=== PATIENT | female | born 1995 | race Caucasian/White ===

== ENCOUNTER 2020-08-18 16:44 | Emergency (ER) | payer SELFPAY ==
[2020-08-18] MEDS ORDERED: Azithromycin 250 MG TAB ONE (17:32)
[2020-08-18] MEDS ORDERED: cefTRIAXone\\ROCEPHIN 250 MG VIAL ONE (17:32)
[2020-08-18] MEDS ORDERED: Lidocaine 1% PF 5 ML VIAL ONE (17:32)
[2020-08-20 23:00] LABS: Chlamydia by PCR Not Detected (NotDetected); GC by PCR Not Detected (NotDetected)
== END 2020-08-18 18:42 | disposition home or self-care (01) ==
LOC: ERS 16:44
DX: N89.8 Other specified noninflammatory disorders of vagina (principal); F31.9 Bipolar disorder, unspecified; Z79.899 Other long term (current) drug therapy
CPT/HCPCS: 87480; 87491; 87510; 87591; 87660; 96372; 99283; J0696